=== PATIENT | female | born 1945 | race Caucasian/White ===

== ENCOUNTER 2024-04-11 09:57 | Emergency (ER) | payer MEDICARE, OTHER ==
[~2024-04-11] VITALS: Ht 172.7 cm; Wt 72.6 kg
[2024-04-11] MEDS ORDERED: Morphine Sulfate 4 MG/1 ML Injection IV ONE (10:40)
--- NOTE | 2024-04-11 12:42 | NUR ---
Pt in to ER for increased oral tumpor pain and sorness. Pt has trach and peg. Pt given morphine with some good relief but made it difficult ro her to participate. Reviewed with caregiver pt risk for increased air humnger need for oral care. Caregiver is new to patient but very engaged and attentive. Goal is keep in at home and binder coverstitch her dignity and comfort.
[2024-04-11] MEDS ORDERED: Percocet 5-3251 EACH PO (12:48)
== END 2024-04-11 13:40 | disposition home or self-care (01) ==
LOC: ER 09:57
DX: M25.512 Pain in left shoulder (principal); Z88.1 Allergy status to other antibiotic agents; Z88.8 Allergy status to other drugs, medicaments and biological substances
CPT/HCPCS: 73030; 82947; 96374; 99284-25; J2270

== ENCOUNTER → 2024-04-13 | Outpatient (CLI) | payer MEDICARE ==
[~2024-04-13] MED LIST: CEFDINIR250 MG/51 PO; Percocet 5-3251 EACH PO
[2024-04-13 15:40] LABS: Source, Urine Voided
[2024-04-13 16:33] LABS: Appearance, Urine Hazy (Clear); Bilirubin, Urine Neg (Neg); Blood, Urine 4+ (Neg); Color, Urine Yellow (P-Yellow); Glucose Qualitative, Urine Neg (Neg); Ketones, Urine Neg (Neg); Leukocyte Esterase, Urine 3+ (Neg); Nitrite, Urine Pos (Neg); Protein, Urine 2+ (Neg); Urobilinogen, Urine NORM (Normal)
[2024-04-13 16:47] LABS: Bacteria Many /hpf; Calcium Oxalate Crystals Few /hpf; Squamous Epithelial Cells Mod /hpf (Few); Transitional Epithelial Cells Rare /hpf (0-Rare)
[2024-04-13 16:48] LABS: Granular Casts 0-2 /lpf (0)
== END ==
LOC: LAB SHORT 15:38 → LAB 15:38
PROVIDERS: Student in an Organized Health Care Education/Training Program
DX: Z43.0 Encounter for attention to tracheostomy (principal)
CPT/HCPCS: 81001; 87077; 87086; 87186

== ENCOUNTER 2024-04-15 10:54 | Emergency (ER) | payer MEDICARE, OTHER ==
[~2024-04-15] VITALS: Ht 160 cm; Wt 68.0 kg
[~2024-04-15 10:54] MED LIST changes: -CEFDINIR250 MG/51 PO
[2024-04-15 11:12] LABS: BASOPHILS ABSOLUTE AUTO 0.08 K/mm3 (0.00-0.23); BASOPHILS PERCENT AUTO 0 % (0-2); EOSINOPHILS ABSOLUTE AUTO 0.86 K/mm3 (0.00-0.68); EOSINOPHILS PERCENT AUTO 5 % (0-6); Hematocrit 35.6 % (33.0-51.0); Hemoglobin 11.1 g/dL (11.5-16.0); IMMATURE GRAN ABSOLUTE AUTO 0.11 K/mm3 (0.00-0.10); IMMATURE GRAN PERCENT AUTO 1 % (0-1); LYMPHOCYTES ABSOLUTE AUTO 2.06 K/mm3 (0.84-5.20); LYMPHOCYTES PERCENT AUTO 11 % (21-46); MONOCYTES ABSOLUTE AUTO 1.33 K/mm3 (0.16-1.47); MONOCYTES PERCENT AUTO 7 % (4-13); Mean Corpuscular HGB Conc 31.2 g/dL (31.5-36.5); Mean Corpuscular Volume 106 fL (80-100); Mean Platelet Volume 10.7 fL (9.1-12.4); NEUTROPHILS ABSOLUTE AUTO 14.53 K/mm3 (1.96-9.15); NEUTROPHILS PERCENT AUTO 77 % (41-73); Platelet Count 348 K/mm3 (150-400); RDW Coefficient Variation 14.1 % (11.7-14.2); Red Blood Cell Count 3.36 M/mm3 (3.80-5.20); White Blood Cell Count 18.97 K/mm3 (4.00-11.30)
[2024-04-15 12:00] LABS: Influenza A, PCR NEGATIVE (NEGATIVE); Influenza B, PCR NEGATIVE (NEGATIVE); Resp Syncytial Virus, PCR NEGATIVE (NEGATIVE); SARS-Cov-2 (COVID-19) PCR, MMC NEGATIVE (NEGATIVE)
[2024-04-15 12:10] LABS: Albumin, Blood 2.3 g/dL (3.4-5.0); Albumin/Globulin Ratio 0.4 (0.8-1.8); Bilirubin, Total 0.2 mg/dL (0.1-1.0); Bun/Creatinine Ratio 123.5 (12.0-20.0); Calcium, Blood 13.6 mg/dL (8.5-10.1); Creatinine, Blood 0.83 mg/dL (0.40-1.00); Globulin, Blood 5.4 g/dL (2.2-4.0); Potassium, Blood 3.9 mmol/L (3.5-5.5); Total Protein, Blood 7.7 g/dL (6.4-8.2)
[2024-04-15] MEDS ORDERED: NS 1,000 ML IV SCH (12:40)
[2024-04-15] MEDS ORDERED: CefTRIAXone Sodium 1,000 MG in NS 100 ML IV ONE (12:40)
[2024-04-15] MEDS ORDERED: CEFDINIR250 MG/51 PO (13:35)
--- NOTE | 2024-04-15 13:56 | NUR ---
Spiritual care is requested for ER7, so I visit. Family explain that they are needing a bottle house pumper because patient is in a dire condition. I locate Father Robby and bring him up to the patient's room where he performs the anointing of the sick. Family voice their appreciation
== END 2024-04-15 14:45 | disposition home or self-care (01) ==
LOC: ER 10:54
PROVIDERS: Emergency Medicine
DX: N39.0 Urinary tract infection, site not specified (principal); E86.0 Dehydration; E87.1 Hypo-osmolality and hyponatremia; Z88.8 Allergy status to other drugs, medicaments and biological substances; Z88.1 Allergy status to other antibiotic agents
CPT/HCPCS: 0241U; 71045; 80053; 82947; 85025; 96361; 96365; 99285-25; J0696; J7030